=== PATIENT | male | born 1965 | race Caucasian/White ===

== ENCOUNTER 2023-08-04 09:30 | Outpatient (OUT) | payer OTHER, SELFPAY ==
--- NOTE | 2023-08-04 09:55 | CT_ITS ---
[address] [address] Patient Name: PRINCE Duane MONTENEGRO MRN: [id number] date: 1965 Sex: M Assigned Patient Location: CT Current Patient Location: Accession/Order Number: [id number] Exam Date: 08/04/2023 09:45 Report Date: 08/05/2023 08:09 At the request of: FRANCESCO BROOKE Procedure: CT lung screening low-dose EXAMINATION: CT lung screening low-dose HISTORY: Baseline Screen For Lung Cancer, Current Smoker COMPARISON: No relevant comparison available. TECHNIQUE: Axial, Coronal, and Sagittal images were created without the administration of IV contrast material. Dose reduction techniques were achieved by using automated exposure control and/or adjustment of mA and/or kV according to patient size and/or use of iterative reconstruction technique. FINDINGS: LUNGS: Scattered punctate pulmonary nodules measuring up to 3 mm, nonspecific. No bronchiectasis, peribronchial thickening or emphysema PLEURA: No mass, effusion, or pneumothorax. VASCULATURE: No abnormality. NETTA: No mass or pathologic adenopathy. MEDIASTINUM: No mass or pathologic adenopathy. CARDIAC: No enlargement or pericardial effusion. Mild to moderate coronary atherosclerosis AORTA: No aneurysm or dissection. CHEST WALL: No mass or axillary adenopathy BONES: No bone lesion or fracture. Degenerative changes. Anterior wedging of a mid thoracic vertebral body. The level cannot be determined LIMITED ABDOMEN: No suspicious findings. Limited images of the upper abdomen. OTHER: Negative. CT/CT lung screening low-dose IMPRESSION: LUNG SCREENING: Lung-RADS Category 2- Benign Appearance or Behavior. Nodules with a very low likelihood of becoming a clinically active cancer due to size or lack of growth. 2. Continue annual screening with LDCT in 12 months. Electronically authenticated by: LISSETT YORK Date: 08/05/2023 08:09
== END 2023-08-04 09:31 | disposition home or self-care (01) ==
LOC: CT 09:30
DX: Z12.2 Encounter for screening for malignant neoplasm of respiratory organs (principal); F17.210 Nicotine dependence, cigarettes, uncomplicated
CPT/HCPCS: 71271